=== PATIENT | female | born 1970 | race African-American/Black ===

== ENCOUNTER 2023-08-18 16:51 | Emergency (ER) | payer OTHER, MEDICAID ==
[~2023-08-18] VITALS: Ht 152.4 cm; Wt 74.0 kg
[2023-08-18 16:54] VITALS: BP 135/74; PULSE 111; RESP 18; TEMP 98.5; O2SAT 100
[2023-08-18] MEDS: TETANUS, DIPHTHERIA, PERTUSSIS VAC/PF 0.5ML (>10YR OLD) IM ONE (22:05)
[2023-08-18] MEDS ORDERED: SULF1TAB48 MT (22:26)
== END 2023-08-18 22:42 | disposition home or self-care (01) ==
LOC: ER 16:51
DX: S09.90XA Unspecified injury of head, initial encounter (principal); E11.9 Type 2 diabetes mellitus without complications; E78.00 Pure hypercholesterolemia, unspecified; I10 Essential (primary) hypertension; Z98.890 Other specified postprocedural states; Z88.0 Allergy status to penicillin; Y08.89XA Assault by other specified means, initial encounter; Y93.89 Activity, other specified; Y92.89 Other specified places as the place of occurrence of the external cause; Y99.8 Other external cause status
CPT/HCPCS: 12011; 70486; 73060; 73080; 73090; 90471; 90715; 99285

== ENCOUNTER 2023-08-28 07:25 | Emergency (ER) | payer OTHER, MEDICAID ==
[~2023-08-28] VITALS: Ht 152.4 cm; Wt 72.6 kg
[~2023-08-28 07:25] MED LIST: SULF1TAB48 MT
[2023-08-28 07:41] VITALS: BP 141/76; PULSE 68; RESP 16; TEMP 98.2; O2SAT 100
== END 2023-08-28 09:04 | disposition home or self-care (01) ==
LOC: ER 07:59
DX: S01.81XD Laceration without foreign body of other part of head, subsequent encounter (principal); E11.9 Type 2 diabetes mellitus without complications; E78.00 Pure hypercholesterolemia, unspecified; I10 Essential (primary) hypertension; Z98.890 Other specified postprocedural states; X58.XXXD Exposure to other specified factors, subsequent encounter
CPT/HCPCS: 99281